=== PATIENT | male | born 1955 | race Caucasian/White ===

== ENCOUNTER → 2024-03-16 | Outpatient (CLI) | payer MEDICARE ==
[~2024-03-16] MED LIST: PROTONIX20 MG PO; REQUIP 0.5MG0.5 MG PO
== END ==
LOC: COL.RAD 10:09
DX: Z12.2 Encounter for screening for malignant neoplasm of respiratory organs (principal); R91.8 Other nonspecific abnormal finding of lung field; F17.200 Nicotine dependence, unspecified, uncomplicated